=== PATIENT | female | born 1985 | race Caucasian/White ===

== ENCOUNTER 2018-11-09 09:21 | Emergency (ER) | payer OTHER ==
[~2018-11-09] VITALS: Ht 172.7 cm; Wt 134.3 kg
[~2018-11-09 09:21] MED LIST: ALBU90OI INH; ALBU90OI61 INH; ASCO500 PO; AZIT250 PO; Baclofen10 MG PO; Bactrim Ds Tab1 EACH PO; CEPH500 PO; CIPR500 PO; CLIN300 PO; CLOB.05TC TP; CODGUAEL PO; CYCL10 PO; DEXGUASY PO; HYDACE5 PO; IBUP800; Keflex500 MG PO; LABE200 PO; NAPR500 PO; Naprosyn500 MG PO; OXYACE5T; OXYACE5T PO; PHENA200 PO; PRED20 PO; PROM25 PO; SULTRIDS PO; TRAM50 PO
[2018-11-09] MEDS ORDERED: PRED20 PO (11:04)
[2018-11-09] MEDS ORDERED: Sudogest30 MG PO (11:04)
[2018-11-09] MEDS ORDERED: BENZ100A PO (11:04)
[2018-11-09] MEDS ORDERED: ALBU90OI INH (11:04)
[2018-11-09] MEDS ORDERED: Flonase 0.05% N16 GM (11:04)
== END 2018-11-09 11:09 | disposition home or self-care (01) ==
LOC: ER 09:21
DX: R05 Cough (principal); R07.81 Pleurodynia; F17.210 Nicotine dependence, cigarettes, uncomplicated
CPT/HCPCS: 71046; 71100; 94640; 99283-25

== ENCOUNTER 2019-08-21 10:01 | Day surgery (SDC) | payer OTHER ==
[~2019-08-21] VITALS: Ht 167.6 cm; Wt 158.3 kg
[~2019-08-21 10:01] MED LIST changes: +BENZ100A PO; +Flonase 0.05% N16 GM; +Sudogest30 MG PO; +TYLENOL325 MG PO
--- NOTE | 2019-08-21 10:42 | NUR ---
Ambulatory in Day Surgery History, Chart, Medications and Allergies reviewed before start of procedure.Patient confirms NPO status and agrees with scheduled surgery.
--- NOTE | 2019-08-21 11:55 | NUR ---
Discharge instructions reviewed with patient. Patient verbalizes understanding. Copy given to patient to take home. PT TOLERATED WATER WELL, HOWEVER DOES HAVE A SORE THROAT. VITAL SIGNS STABLE. Discharged via wheelchair to private car for ride home.
== END 2019-08-21 23:03 | disposition home or self-care (01) ==
LOC: ORSCMMR 10:01 → ORD 11:45 → ORSCMMR 23:03
PROVIDERS: Surgery
PROC: 0DB98ZX Excision of Duodenum, Via Natural or Artificial Opening Endoscopic, Diagnostic (ICD-10-PCS; principal; 2019-08-21 11:45)
DX: R10.11 Right upper quadrant pain (principal); K76.89 Other specified diseases of liver; J45.909 Unspecified asthma, uncomplicated; Z79.51 Long term (current) use of inhaled steroids; F17.210 Nicotine dependence, cigarettes, uncomplicated; E66.01 Morbid (severe) obesity due to excess calories; Z68.43 Body mass index [BMI] 50.0-59.9, adult
CPT/HCPCS: 88305; J2704; J7120

== ENCOUNTER 2023-03-04 10:25 | Emergency (ER) | payer OTHER ==
[~2023-03-04] VITALS: Ht 172.7 cm; Wt 145.2 kg
[2023-03-04 10:53] LABS: BASOPHILS ABSOLUTE AUTO 0.05 K/mm3 (0.00-0.23); BASOPHILS PERCENT AUTO 0 % (0-2); EOSINOPHILS ABSOLUTE AUTO 0.34 K/mm3 (0.00-0.68); EOSINOPHILS PERCENT AUTO 3 % (0-6); Hematocrit 49.8 % (33.0-51.0); Hemoglobin 16.6 g/dL (11.5-16.0); IMMATURE GRAN ABSOLUTE AUTO 0.06 K/mm3 (0.00-0.10); IMMATURE GRAN PERCENT AUTO 1 % (0-1); LYMPHOCYTES PERCENT AUTO 18 % (21-46); MONOCYTES ABSOLUTE AUTO 0.59 K/mm3 (0.16-1.47); MONOCYTES PERCENT AUTO 5 % (4-13); Mean Corpuscular HGB 28.5 pg (26.0-34.0); Mean Corpuscular HGB Conc 33.3 g/dL (31.5-36.5); Mean Corpuscular Volume 85 fL (80-100); Mean Platelet Volume 9.3 fL (9.1-12.4); NEUTROPHILS ABSOLUTE AUTO 8.76 K/mm3 (1.96-9.15); NEUTROPHILS PERCENT AUTO 74 % (41-73); Platelet Count 365 K/mm3 (150-400); Red Blood Cell Count 5.83 M/mm3 (3.80-5.20)
[2023-03-04 11:15] LABS: Albumin, Blood 3.6 g/dL (3.4-5.0); Albumin/Globulin Ratio 0.8 (0.8-1.8); Bilirubin, Total 0.5 mg/dL (0.1-1.0); Bun/Creatinine Ratio 16.8 (12.0-20.0); Calcium, Blood 9.1 mg/dL (8.5-10.1); Creatinine, Blood 0.65 mg/dL (0.40-1.00); Globulin, Blood 4.5 g/dL (2.2-4.0); Total Protein, Blood 8.1 g/dL (6.4-8.2)
[2023-03-04 11:49] LABS: Source, Urine Clean Catch
[2023-03-04 11:53] LABS: Appearance, Urine Clear (Clear); Bilirubin, Urine Neg (Neg); Blood, Urine Neg (Neg); Color, Urine Yellow (P-Yellow); Glucose Qualitative, Urine Neg (Neg); Ketones, Urine Neg (Neg); Leukocyte Esterase, Urine Neg (Neg); Nitrite, Urine Neg (Neg); Protein, Urine Neg (Neg); Urobilinogen, Urine NORM (Normal)
[2023-03-04 14:00] VITALS: BP 142/100
[2023-03-04] MEDS ORDERED: OXYACE7.5T PO (14:03)
== END 2023-03-04 14:20 | disposition home or self-care (01) ==
LOC: ER 10:25
PROVIDERS: Physician Assistant
DX: K76.89 Other specified diseases of liver (principal); F17.210 Nicotine dependence, cigarettes, uncomplicated
CPT/HCPCS: 74177; 80053; 81003; 83690; 84703; 85025; 96361; 96374-59; 96375; 99284-25; A9270; J1885; J2405; J3010; J7030; Q9967

== ENCOUNTER 2023-04-08 10:58 | Emergency (ER) | payer OTHER ==
[~2023-04-08] VITALS: Ht 170.2 cm; Wt 163.3 kg
[~2023-04-08 10:58] MED LIST changes: +OXYACE7.5T PO
[2023-04-08 11:35] LABS: BASOPHILS ABSOLUTE AUTO 0.04 K/mm3 (0.00-0.23); BASOPHILS PERCENT AUTO 0 % (0-2); EOSINOPHILS ABSOLUTE AUTO 0.09 K/mm3 (0.00-0.68); EOSINOPHILS PERCENT AUTO 1 % (0-6); Hematocrit 46.8 % (33.0-51.0); Hemoglobin 15.4 g/dL (11.5-16.0); IMMATURE GRAN ABSOLUTE AUTO 0.08 K/mm3 (0.00-0.10); IMMATURE GRAN PERCENT AUTO 1 % (0-1); LYMPHOCYTES ABSOLUTE AUTO 1.03 K/mm3 (0.84-5.20); LYMPHOCYTES PERCENT AUTO 10 % (21-46); MONOCYTES ABSOLUTE AUTO 0.85 K/mm3 (0.16-1.47); MONOCYTES PERCENT AUTO 9 % (4-13); Mean Corpuscular HGB 28.1 pg (26.0-34.0); Mean Corpuscular HGB Conc 32.9 g/dL (31.5-36.5); Mean Corpuscular Volume 85 fL (80-100); Mean Platelet Volume 9.4 fL (9.1-12.4); NEUTROPHILS ABSOLUTE AUTO 7.79 K/mm3 (1.96-9.15); NEUTROPHILS PERCENT AUTO 79 % (41-73); Platelet Count 430 K/mm3 (150-400); RDW Coefficient Variation 13.1 % (11.7-14.2); RDW Standard Deviation 40.5 fL (35.1-46.3); Red Blood Cell Count 5.48 M/mm3 (3.80-5.20); White Blood Cell Count 9.88 K/mm3 (4.00-11.30)
[2023-04-08 11:56] LABS: Albumin, Blood 2.7 g/dL (3.4-5.0); Albumin/Globulin Ratio 0.6 (0.8-1.8); Bilirubin, Total 0.8 mg/dL (0.1-1.0); Bun/Creatinine Ratio 14.1 (12.0-20.0); Calcium, Blood 9.4 mg/dL (8.5-10.1); Creatinine, Blood 0.71 mg/dL (0.40-1.00); Globulin, Blood 4.6 g/dL (2.2-4.0); Potassium, Blood 3.8 mmol/L (3.5-5.5); Total Protein, Blood 7.3 g/dL (6.4-8.2)
[2023-04-08 14:53] VITALS: BP 139/87
[2023-04-08] MEDS ORDERED: SENNA LAXATIVE8.6 MG PO (14:59)
[2023-04-08] MEDS ORDERED: DOCU100 PO (14:59)
[2023-04-08] MEDS ORDERED: HYDMOR2 PO ×2 (14:59→15:57)
== END 2023-04-08 15:17 | disposition home or self-care (01) ==
LOC: ER 10:58
PROVIDERS: Student in an Organized Health Care Education/Training Program
DX: K76.89 Other specified diseases of liver (principal); J98.4 Other disorders of lung; F17.210 Nicotine dependence, cigarettes, uncomplicated
CPT/HCPCS: 74177; 80053; 83690; 85025; J1170; J2405; J7030; Q9967

== ENCOUNTER 2023-05-04 10:52 | Inpatient (IN) | payer OTHER ==
[~2023-05-04] VITALS: Ht 170.2 cm; Wt 154.2 kg
[~2023-05-04 10:52] MED LIST changes: +DOCU100 PO; +HYDMOR2 PO; +SENNA LAXATIVE8.6 MG PO
[2023-05-04 11:38] LABS: Hematocrit 35.3 % (33.0-51.0); Hemoglobin 11.5 g/dL (11.5-16.0); Mean Corpuscular HGB 28.6 pg (26.0-34.0); Mean Corpuscular HGB Conc 32.6 g/dL (31.5-36.5); Mean Corpuscular Volume 88 fL (80-100); Mean Platelet Volume 8.5 fL (9.1-12.4); NRBC ABSOLUTE 0.14 K/mm3 (0.00-0.02); NRBC Auto 1.2 /100 WBC (0.0-0.2); Platelet Count 324 K/mm3 (150-400); RDW Coefficient Variation 20.6 % (11.7-14.2); Red Blood Cell Count 4.02 M/mm3 (3.80-5.20); White Blood Cell Count 11.64 K/mm3 (4.00-11.30)
[2023-05-04 11:47] LABS: Albumin, Blood 2.3 g/dL (3.4-5.0); Albumin/Globulin Ratio 0.5 (0.8-1.8); Bilirubin, Direct 10.4 mg/dL (0.0-0.3); Bilirubin, Indirect 2.9 mg/dL (0.1-0.7); Bilirubin, Total 13.3 mg/dL (0.1-1.0); Bun/Creatinine Ratio 22.2 (12.0-20.0); Calcium, Blood 10.5 mg/dL (8.5-10.1); Creatinine, Blood 1.94 mg/dL (0.40-1.00); Globulin, Blood 4.6 g/dL (2.2-4.0); Total Protein, Blood 6.9 g/dL (6.4-8.2)
[2023-05-04] MEDS ORDERED: ONDA4ODT (12:39)
[2023-05-04] MEDS ORDERED: OXYC5 PO (12:39)
[2023-05-04 13:27] LABS: BAND PERCENT MAN 5 % (0-8); BASOPHILS PERCENT MAN 0 % (0-2); EOSINOPHILS ABSOLUTE MAN 0.11 K/mm3 (0.00-0.68); EOSINOPHILS PERCENT MAN 1 % (0-6); LYMPHOCYTES ABSOLUTE MAN 1.28 K/mm3 (0.84-5.20); LYMPHOCYTES PERCENT MAN 11 % (21-46); METAMYELOCYTE ABSOLUTE MAN 0.23 K/mm3 (0.00-0.00); METAMYELOCYTE PERCENT MAN 2 % (0-0); MONOCYTES ABSOLUTE MAN 0.58 K/mm3 (0.16-1.47); MONOCYTES PERCENT MAN 5 % (4-13); MYELOCYTE ABSOLUTE MAN 0.46 K/mm3 (0.00-0.00); MYELOCYTE PERCENT MAN 4 % (0-0); NEUTROPHILS ABSOLUTE MAN 8.96 K/mm3 (1.96-9.15); SEG NEUTROPHILS PERCENT MAN 72 % (41-73); TOTAL CELLS COUNTED 100
[2023-05-04 13:30] LABS: International Normalized Ratio 1.1; Prothrombin Time Results 11.5 Sec (9.7-11.5)
[2023-05-04 15:00] VITALS: BP 94/57
[2023-05-04 16:54] LABS: Albumin, Blood 2.1 g/dL (3.4-5.0); Anion Gap 12 mmol/L (6-16); Blood Urea Nitrogen 44 mg/dL (8-24); Bun/Creatinine Ratio 21.9 (12.0-20.0); CO2, Blood 22 mmol/L (21-32); Calcium, Blood 10.1 mg/dL (8.5-10.1); Chloride, Blood 90 mmol/L (98-108); Creatinine, Blood 2.01 mg/dL (0.40-1.00); Glomerular Filtration Rate 32 (60-); Glucose, Blood 81 mg/dL (70-99); Phosphorus, Blood 3.6 mg/dL (2.5-4.9); Potassium, Blood 5.8 mmol/L (3.5-5.5); Sodium, Blood 124 mmol/L (136-145)
[2023-05-04 17:06] VITALS: BP 94/69
--- NOTE | 2023-05-04 17:59 | NUR ---
Brief supportive visit this afternoon. Pt reporting significant pain and nausea. Lots of family at bedside including mother, 2 sisters, brother in law, and niece. Offered therapeutic listening and answered questions. Pt and family agreeable to recieve different pain regimen if appripriate. Spoke with Dr Hyatt and discussed case. Placed order for Dilaudid IV 0.5-1mg every 2 hours as needed for pain, Oxycontin 10mg by mouth every 12 hours, and Reglan 10 IV every 6 hours as needed for nausea, and placed order for continuous pulse ox per V/O from Dr Hyatt. Palliative Care will F/U for supportive and therapeutic visits.
--- NOTE | 2023-05-04 18:46 | NUR ---
TRANSFER UPDATE/END OF SHIFT REPORT RECIEVED FROM ED RN AT 1633. PT ARRIVED TO PCU AT 1655 VIA GURNEY AND TRANSFERED TO PCU BED WITH MINIMAL ASSISTANCE, TOLERATED FAIR. PT RUQ ABD IN SEVERE PAIN AT TIME OF ARRIVAL, TREATED PER EMAR, LITTLE RELIEF. PALLIATIVE CARE SEEN PT TODAY TO BUILD SOME RAPPORT, PALLIATIVE RN CONTACTED DR FOR ADDITIONAL PAIN MANAGEMENT MEDS, SEE ORDERS. PT A/OX4. BP'S SOFT AT TIME OF ARRIVAL. NO REPORT OF CHEST PIAN/PRESSURE SINCE ARRIVAL. NO REPORT OF SOB/DYSPNEA SINCE ARRIVAL TO UNIT. PT REPORTS NAUSEA, TREATED PER EMAR.
[2023-05-04 20:08] VITALS: BP 106/57
[2023-05-04 20:17] LABS: Bun/Creatinine Ratio 20.2 (12.0-20.0); Calcium, Blood 10.2 mg/dL (8.5-10.1); Creatinine, Blood 2.38 mg/dL (0.40-1.00); Potassium, Blood 5.5 mmol/L (3.5-5.5)
[2023-05-04 20:22] LABS: Potassium, Blood 5.5 mmol/L (3.5-5.5); Uric Acid, Blood 17.7 mg/dL (2.6-6.0)
[2023-05-04 23:23] VITALS: BP 95/60
[2023-05-05 03:59] VITALS: BP 102/50
[2023-05-05 03:59] LABS: Hematocrit 30.9 % (33.0-51.0)
[2023-05-05 05:57] LABS: Magnesium, Blood 2.6 mg/dL (1.6-2.4)
[2023-05-05 06:14] LABS: Albumin, Blood 2.8 g/dL (3.4-5.0); Albumin/Globulin Ratio 0.7 (0.8-1.8); Bilirubin, Total 13.9 mg/dL (0.1-1.0); Bun/Creatinine Ratio 20.8 (12.0-20.0); Calcium, Blood 9.8 mg/dL (8.5-10.1); Creatinine, Blood 2.31 mg/dL (0.40-1.00); Globulin, Blood 3.9 g/dL (2.2-4.0); Phosphorus, Blood 3.8 mg/dL (2.5-4.9); Potassium, Blood 5.3 mmol/L (3.5-5.5); Thyroid Stimulating Hormone 4.41 uIU/mL (0.360-4.800); Total Protein, Blood 6.7 g/dL (6.4-8.2); Uric Acid, Blood 17.4 mg/dL (2.6-6.0)
--- NOTE | 2023-05-05 06:55 | NUR ---
SHIFT SUMMARY PATIENT ALERT AND ORIENTED X4, ABLE TO AMBULATE WITH MINIMAL ASSITANCE. PATIENT IN SEVERE PAIN 9-10/10 IN HER UPPER ABDOMEN. MEDICATED PER EMAR FOR THE PAIN AND NAUSEA. VITAL SIGNS STABLE. PATIENT PLACED ON 2 LITERS O2 WHILE SLEEPING TO HELP MAINTAIN SPO2 >90%. PATIENT ASSESSED FOR SOURCES OF IGNITION. WILL CONTINUE TO MONITOR. CALL LIGHT WITHIN REACH.
[2023-05-05 07:59] VITALS: BP 101/68
--- NOTE | 2023-05-05 10:44 | NUR ---
DURING MORNING ASSESSMENT AT 0745, PT AND FAMILY ASSESSED FOR IGNITION RISKS, NONE REPORTED. PT AND FAMILY REMINDED THAT [facility] IS A SMOKE FREE FACILITY AND LEAVE INGITION RISK DEVICES IN THEIR VEHICLES, FAMILY COOPERATIVE.
--- NOTE | 2023-05-05 11:06 | NUR ---
Supportive visit this AM. Pt doubling over in pain. She describes pain similar to spasms in right upper quadrant. Pt's mother, sister, and brother in law at bedside. Discussed potential medications to assist with pain. Pt agreeable. Offered therapeutic listening and answered questions. Engaged in therapeutic conversation regarding code status. Educated on life sustaining measures including risks and implications to CPR. Pt reports leaning towards DNR but would like to discuss further with family. Pt and family requesting ocean forwarder. Spoke with Dr Angel and discussed case. Dr Angel will consider Valium as part of Pt's symptom managment regimen. Spoke with Seismometer Operator Mike and relayed request. Palliative Care will F/U later today.
--- NOTE | 2023-05-05 11:57 | NUR ---
"Spiritual Care Visit | Palliative Nurse request Pt. is sitting up in a chair and welcomes my visit. Many family are present. Pt. displays evidence of being aware and engaged but also aware of the acute nature of her condition. Pt. displays moments of emotion, as do family that are present. Pt. verbalized that her primary concern she has is for her children. Listen with empathy and calming presence. Pastoral educational guidance counselor is given as is prayer for the Pt. Pt. verbalized gratitude for the spiritual care visit. This manager demand will remain available to the Pt. and family."
[2023-05-05 13:16] LABS: Potassium, Blood 4.9 mmol/L (3.5-5.5)
--- NOTE | 2023-05-05 13:24 | NUR ---
DR CLINE CONTACTED PER REQUEST WITH RESULTS OF SODIUM 124 AND POTASSIUM OF 4.9 AT 1323. NO NEW ORDERS AT THIS TIME.
--- NOTE | 2023-05-05 16:40 | NUR ---
F/U visit this afternoon. Pt resting in bed with lots of family at bedside. Pt still requiring frequent breakthrough medications. She does report the valium being beneficial. Pt agreeable to make adjustments to medication regimen. F/U discussion regarding code status wishes. Pt elects to be DNR. Offered therapeutic listening and answered questions. Pt and family express appreciation and report no other concerns at this time. Consulted hospital Pharmacist Dara and discussed options for long acting pain medication. Recommendations are D/C Fentanyl patch and increase oxycontin to 20mg every [address] Angel and discussed case. D/C Fentanyl patch 12 mcg, D/C oxycontin 10 mg every 12 hours, order oxycontin 20 mg by mouth every 12 hours, and placed DNR order for Pt in [facility] per V/O from Dr Angel. Plan: Symptom management and monitor liver function. If no improvement in a few days, Pt and family may benefit from discussion regarding hospice. Per oncology Pt not candidate for treatment unless liver function improves. Palliative Care will remain available.
--- NOTE | 2023-05-05 17:42 | NUR ---
SHIFT SUMMARY PT A/OX4 AND COOPERATIVE OF CARE. PT ABLE TO EXPRESS NEEDS. PT VSS THROUGHOUT SHIFT WITH 02 SATS IN THE 90'S ON RA. NO REPORT OF CHEST PAIN/PRESSURE THROUGHOUT SHIFT. PT REPORTED DIFICULTY TAKING BREATHS AT TIMES DUE TO SEVERE ABDOMINAL PAIN; PAIN TREATED BY REPOSITIONING AND PER EMAR. PT CODE STATUS CHANGED FROM FULL TO DNR AFTER DISCUSSION WITH FAMILY AND PALLIATIVE CARE RN.PT WAS PRESCRIBED A FENTANYL PATCH THAT WAS APPLIED PER ORDERS, PATCH REMOVED AT 1630 DUE TO ORDER BEING DC'D. PT INDEPENDENT IN ROOM AND BED. PT REMAINED ON 1000ML FLUID RESTRICTION PER ORDER. RASPURICASE MED HELD TODAY AWAITING FOR A PENDING G6PD LAB DRAW. PT TO BE TRANSFERED TO MED FLOOR ROOM 328. REORT GIVEN TO MED RN AT 6075.
--- NOTE | 2023-05-05 19:09 | NUR ---
PCU TRANSFER Patient alert & oriented x4. Reports severe pain t/o body. Sister at bedside assisting with care. PRN dilaudid & phenergan given for pain. New IV placed in right hand. Reviewed plan with palliative care. will continue to keep patient comfortable and monitor labs.
[2023-05-05 19:45] VITALS: BP 104/55
[2023-05-06 05:48] LABS: Hematocrit 28.4 % (33.0-51.0); Hemoglobin 9.3 g/dL (11.5-16.0); Mean Corpuscular HGB 28.4 pg (26.0-34.0); Mean Corpuscular HGB Conc 32.7 g/dL (31.5-36.5); Mean Corpuscular Volume 87 fL (80-100); Mean Platelet Volume 8.6 fL (9.1-12.4); NRBC ABSOLUTE 0.04 K/mm3 (0.00-0.02); NRBC Auto 0.3 /100 WBC (0.0-0.2); Platelet Count 234 K/mm3 (150-400); RDW Standard Deviation 61.6 fL (35.1-46.3); Red Blood Cell Count 3.28 M/mm3 (3.80-5.20); White Blood Cell Count 12.54 K/mm3 (4.00-11.30)
--- NOTE | 2023-05-06 06:05 | NUR ---
SHIFT SUMMARY PT IS A&O4, UP SB WITH WALKER TO BR, PT SISTER HAS BEEN AT BEDSIDE THROUGHOUT NIGHT, PRN AND SCHEDULED PAIN MEDICATION GIVEN PER MAR FOR SEVERE RUQ PAIN, 2L OVERNIGHT, FIRE IGNITION ED PROVIDED, CONTINUE POC
[2023-05-06 06:34] LABS: Albumin, Blood 2.1 g/dL (3.4-5.0); Albumin/Globulin Ratio 0.6 (0.8-1.8); Bilirubin, Total 13.4 mg/dL (0.1-1.0); Bun/Creatinine Ratio 22.3 (12.0-20.0); Calcium, Blood 9.2 mg/dL (8.5-10.1); Creatinine, Blood 2.02 mg/dL (0.40-1.00); Globulin, Blood 3.8 g/dL (2.2-4.0); Magnesium, Blood 2.4 mg/dL (1.6-2.4); Potassium, Blood 4.6 mmol/L (3.5-5.5); Total Protein, Blood 5.9 g/dL (6.4-8.2)
[2023-05-06 07:30] VITALS: BP 89/41
[2023-05-06 13:21] VITALS: BP 99/54
[2023-05-06 16:17] VITALS: BP 90/56
--- NOTE | 2023-05-06 16:44 | NUR ---
DAYSHIFT SUMMARY Patient alert & oriented x4. Very painful with movement, Patient in severe pain this morning, she was restless, crying out. Administred IV fentynal & PO oxycodone, PRNs not effective. MD ordered Roxinol for pain. Patients sister at bedside, reported family hx of Morphine reactions, reaction unknown, sister stated her brother josi from morphine. Reported concerns to MD & pharmacist, educated on possible side effects. Reviewed information with patient, she wanted to try the roxinol anyways. RN at bedside, no reaction from Roxinol observed. Roxinol administred t/o the day for pain, patient appears comfortable, she was finally able to fall asleep. Dr. Machuca ordered stat Sodium lab, and reported results to him. IV Albumin administred & started midodrine for soft BPs. Started 24hr urine today. ABD CT done today, results pending. Patient & family educated on ignition sources and risk of injury while oxygen is in use. Patient & family deny smoking & verbalize understanding. Will continue plan of care.
[2023-05-06 20:11] VITALS: BP 94/49
[2023-05-07] VITALS (7 sets, daily range): BP systolic 86–111; BP diastolic 45–63
[2023-05-07 05:55] LABS: Hematocrit 27.6 % (33.0-51.0); Hemoglobin 8.9 g/dL (11.5-16.0); Mean Corpuscular HGB 28.4 pg (26.0-34.0); Mean Corpuscular HGB Conc 32.2 g/dL (31.5-36.5); Mean Corpuscular Volume 88 fL (80-100); Mean Platelet Volume 8.4 fL (9.1-12.4); NRBC ABSOLUTE 0.06 K/mm3 (0.00-0.02); NRBC Auto 0.5 /100 WBC (0.0-0.2); Platelet Count 214 K/mm3 (150-400); RDW Coefficient Variation 21.6 % (11.7-14.2); RDW Standard Deviation 64.5 fL (35.1-46.3); Red Blood Cell Count 3.13 M/mm3 (3.80-5.20); White Blood Cell Count 11.72 K/mm3 (4.00-11.30)
--- NOTE | 2023-05-07 06:16 | NUR ---
SHIFT SUMMARY PT IS A&O4, SB TO BR, PT'S MOM HAS BEEN A THE BEDSDIE ALL NIGHT, 2L NC SATS LOW 90'S, MEDICATED FOR ABDOMINAL PAIN PER MAR THROUGHOUT NIGHT, NO ACUTE OVERNIGHT EVENTS, FIRE IGNITION SAFETY EDUCATION PROVIDED, CONTINUE POC
[2023-05-07 06:56] LABS: Albumin, Blood 2.4 g/dL (3.4-5.0); Albumin/Globulin Ratio 0.6 (0.8-1.8); Bilirubin, Total 14.4 mg/dL (0.1-1.0); Bun/Creatinine Ratio 26.2 (12.0-20.0); Calcium, Blood 9.4 mg/dL (8.5-10.1); Creatinine, Blood 1.72 mg/dL (0.40-1.00); Globulin, Blood 3.8 g/dL (2.2-4.0); Magnesium, Blood 2.4 mg/dL (1.6-2.4); Potassium, Blood 4.1 mmol/L (3.5-5.5); Total Protein, Blood 6.2 g/dL (6.4-8.2); Uric Acid, Blood 16.1 mg/dL (2.6-6.0)
--- NOTE | 2023-05-07 14:13 | NUR ---
Met with pt this am for a supportive visit. Bedside RN requested a visit today from Palliative care. Pt has been lying in bed since this morning on her R side. She reports abd pain is well controlled at the moment, at 3/10. She does c/o increasing pressure in her abd, and reports Dr. Angel is aware of this and hoping to place a pleurX drain to assist with this. Pt's mom at bedside as well, and pt appeared calm and relaxed this am. She is alert, pleasant. No immediate needs idenified at this time.
--- NOTE | 2023-05-07 16:54 | NUR ---
DAYSHIFT SUMMARY Patient alert & oriented x4. Patient appears more comfortable this shift, resting quietly in bed, sleeping t/o the day. Patient was able to get OOB and shower w/ assistance from sister. Patient went down to CT & had liver cyst drained, 2.5L fluid was aspirated. Patient reports improvement with mobiltiy & breathing after cyst drained. Roxinol PRN effective for pain. Patient denies smoking any nicotine products. During hourly rounding, education provided on the risks of injury while using an ignition source around O2. Patient & family members verbalize understanding and deny having any ignition sources in possession. 1L fluid restriction ordered, today IV Lasix given instead of PO Lasix per facility maintenance worker. Soft BPs, midodrine given. Will continue plan of care.
[2023-05-08 03:21] VITALS: BP 92/57
[2023-05-08 05:53] LABS: Hematocrit 27.6 % (33.0-51.0); Hemoglobin 8.7 g/dL (11.5-16.0); Mean Corpuscular HGB Conc 31.5 g/dL (31.5-36.5); Mean Corpuscular Volume 89 fL (80-100); Mean Platelet Volume 8.7 fL (9.1-12.4); NRBC ABSOLUTE 0.06 K/mm3 (0.00-0.02); NRBC Auto 0.5 /100 WBC (0.0-0.2); Platelet Count 208 K/mm3 (150-400); RDW Coefficient Variation 21.8 % (11.7-14.2); Red Blood Cell Count 3.11 M/mm3 (3.80-5.20); White Blood Cell Count 12.82 K/mm3 (4.00-11.30)
[2023-05-08 06:17] LABS: Magnesium, Blood 2.2 mg/dL (1.6-2.4)
[2023-05-08 07:36] VITALS: BP 81/46
--- NOTE | 2023-05-08 11:19 | NUR ---
Pt has elected comfort care today, and home with hospice. Her mom was also present, and in agreement with pt's plan to go home with hospice. Pt's mom planning to stay with her for the duration, along with the pt's minor children. The current plan is for pt's sister to take custody of pt's children after pt the pt passes. According to Dr. Angel, the pt is not a candidate for a pleurX drain. Pt is tearful, states she's worried about how her kids will handle "all this". I gave booklets on understanding a child's grief to pt and her mother Maria G along with a few other brochures on , dying and grief. Placing comfort care orders now, per v/o from Dr. Angel.
[2023-05-08 12:31] LABS: Albumin, Blood 2.3 g/dL (3.4-5.0); Albumin/Globulin Ratio 0.7 (0.8-1.8); Bilirubin, Total 14.3 mg/dL (0.1-1.0); Bun/Creatinine Ratio 32.1 (12.0-20.0); Calcium, Blood 9.2 mg/dL (8.5-10.1); Creatinine, Blood 1.62 mg/dL (0.40-1.00); Globulin, Blood 3.5 g/dL (2.2-4.0); Potassium, Blood 4.2 mmol/L (3.5-5.5); Total Protein, Blood 5.8 g/dL (6.4-8.2); Uric Acid, Blood 16.4 mg/dL (2.6-6.0)
--- NOTE | 2023-05-08 18:44 | NUR ---
SHIFT SUMMARY: Pt remains A&O this shift. Abdominal pain managed with current regime and breakthru po meds. Up to bathroom with rolling walker to void. No BM this shift. Pt tolerating jello, popsicles. Resp even nonlabored with 1L NC. Pt now comfort care only. Pt brother in law brought pt young son and daughter in to visit. Emotional support provided. Pt states her sister and brother in law will assume responsibilty of her two children. Plan remains to return home with home hospice.
--- NOTE | 2023-05-09 06:39 | NUR ---
NAUSEA AND VOMITING X2, PRN PAIN MEDS/NAUSEA MEDS GIVEN REGULARLY AT PATIENT REQUEST. SISTER PRESENT WITH PATIENT DURING SHIFT. OTHERWISE NO SIGNIFICANT CHANGES NOTED TO PT CONDITION. AO, INDEPENDENT, PLEASANT, ANXIOUS AT TIMES.
[2023-05-09 07:26] LABS: Albumin, Blood 2.1 g/dL (3.4-5.0); Anion Gap 11 mmol/L (6-16); Blood Urea Nitrogen 49 mg/dL (8-24); Bun/Creatinine Ratio 36.6 (12.0-20.0); CO2, Blood 25 mmol/L (21-32); Calcium, Blood 8.7 mg/dL (8.5-10.1); Chloride, Blood 96 mmol/L (98-108); Creatinine, Blood 1.34 mg/dL (0.40-1.00); Glomerular Filtration Rate 53 (60-); Glucose, Blood 88 mg/dL (70-99); Magnesium, Blood 2.2 mg/dL (1.6-2.4); Phosphorus, Blood 3.7 mg/dL (2.5-4.9); Potassium, Blood 4.2 mmol/L (3.5-5.5); Sodium, Blood 132 mmol/L (136-145)
--- NOTE | 2023-05-09 13:29 | NUR ---
Care Conference: Spoke with pt's mother Maria G today, she expressed reservations about taking care of pt at home. She initially stated she has a bad back, but as we continued talking, she stated the truth being she is unsure she can take care of her "dying child". I held space for her to discuss her feelings. She eventually did agree to try being the pt's primary caregiver after getting added reassurance from Danielle, Sheriffs Detective. The plan remains for pt to go home with [facility] tomorrow. Gave pt's mom Maria G folder of information including applying for social security benefits for pt's children, obtaining temporary and permanent guardianship of them, and information on legal activity adjudicator. All eight domains of Palliative Care are being explored for/with this patient and her family.
[2023-05-09 15:10] LABS: G-6-PD, QUANT 446 (127-427); RBC 3.56 x10E6/uL (3.77-5.28)
--- NOTE | 2023-05-09 19:30 | NUR ---
SHIFT SUMMARY: PT A/O X 4, STANDBY ASSIST, PLEASANT AND COOPERATIVE. PT ON COMFORT CARE. PAIN MANAGED TODAY WITH CURRENT PAIN REGIMEN. PT STARTED GABAPENTIN AND TOLERATED NEW MEDICATION. PT EATING WELL AND ABLE TO MAKE NEEDS KNOWN.
--- NOTE | 2023-05-10 05:54 | NUR ---
NO SIGNIFICANT CHANGES TO PATIENT CONDITION NOTED. PRN PAIN MEDS, NAUSEA MEDS GIVEN REGULARLY. INTERMITTENT NV. 1L NC FOR COMFORT. PT AO, PLEASANT, CALLS APPROPRIATELY.
[2023-05-10] MEDS ORDERED: Morphine Sulfat15 MG PO (10:19)
[2023-05-10] MEDS ORDERED: ATROPINE S0.1 MG/1 M SL (10:22)
[2023-05-10] MEDS ORDERED: DIAZ5 PO (10:24)
[2023-05-10] MEDS ORDERED: MORP15ER PO (10:24)
[2023-05-10] MEDS ORDERED: FURO40 PO (10:25)
[2023-05-10] MEDS ORDERED: MORP20L PO (10:26)
[2023-05-10] MEDS ORDERED: GABA100 PO (10:26)
[2023-05-10] MEDS ORDERED: PROM12.5S PR ×2 (10:27→10:29)
[2023-05-10] MEDS ORDERED: PROM25 PO (10:30)
[2023-05-10] MEDS ORDERED: TRANSDERM-SCOP1 EA13 TD (10:32)
[2023-05-10] MEDS ORDERED: SENNA LAXATIVE8.6 MG PO (10:32)
[2023-05-10] MEDS ORDERED: MICONAZOLE TOP (10:34)
--- NOTE | 2023-05-10 11:52 | NUR ---
DISCHARGE PT DISCHARGED HOME VIA [facility] BY AMBULANCE STAFF. PT ABLE TO TRANSFER SELF TO [facility]. PREMEDICATED WITH ROXANOL 20MG PER PT REQUEST. BELONGINGS, INCLUDING TALAVERA, SENT WITH PT. CONTINUE POC.
--- NOTE | 2023-05-10 12:03 | NUR ---
updated company laundry worker on he complex needs of he patients minor children. avised manager social media to conact Christine Madsen if she needs back up as she has established trus with the family.
== END 2023-05-10 11:28 | disposition hospice, home (50) | DRG 435 ==
LOC: ER 10:52 → MEDS 15:16 → PCU 15:16 → MEDS 15:16 → PCU 16:56 → MEDS 05-05 18:24 → ENPENDDIS 05-10 09:55 → MEDS 05-10 11:28
PROVIDERS: Emergency Medicine; Internal Medicine; Internal Medicine Nephrology; Physician Assistant; ADMIT Internal Medicine
PROC: 0F903ZZ Drainage of Liver, Percutaneous Approach (ICD-10-PCS; principal; 2023-05-07)
DX: C22.0 Liver cell carcinoma (principal); K76.7 Hepatorenal syndrome; N17.0 Acute kidney failure with tubular necrosis; B17.9 Acute viral hepatitis, unspecified; E87.1 Hypo-osmolality and hyponatremia; C78.00 Secondary malignant neoplasm of unspecified lung; C77.9 Secondary and unspecified malignant neoplasm of lymph node, unspecified; Z68.43 Body mass index [BMI] 50.0-59.9, adult; M62.82 Rhabdomyolysis; E87.20 Acidosis, unspecified; Z51.5 Encounter for palliative care; Z66 Do not resuscitate; I95.9 Hypotension, unspecified; E87.5 Hyperkalemia; E66.01 Morbid (severe) obesity due to excess calories; R74.8 Abnormal levels of other serum enzymes; E86.9 Volume depletion, unspecified; G89.29 Other chronic pain; F17.210 Nicotine dependence, cigarettes, uncomplicated; M54.50 Low back pain, unspecified; D64.9 Anemia, unspecified; E83.41 Hypermagnesemia; E79.0 Hyperuricemia without signs of inflammatory arthritis and tophaceous disease; E87.70 Fluid overload, unspecified; G62.9 Polyneuropathy, unspecified; E83.52 Hypercalcemia; Z87.440 Personal history of urinary (tract) infections; Z98.890 Other specified postprocedural states; Z79.899 Other long term (current) drug therapy; Z79.891 Long term (current) use of opiate analgesic; Z90.722 Acquired absence of ovaries, bilateral
CPT/HCPCS: 36415; 49405; 71250; 74176; 74177; 76705; 76942; 80048; 80053; 80069; 80076; 82140; 82533; 82550; 82947; 82955; 83735; 84100; 84132; 84295; 84300; 84443; 84550; 85014; 85018; 85025; 85027; 85610; 85730; 94760; 94762; 96374-59; 96375; 96376; 99285-25; A9270; C1751; J1170; J1940; J2405; J2765; J3010; J7030; J7042; P9047; Q9967